=== PATIENT | male | born 1945 | race Caucasian/White ===

== ENCOUNTER → 2017-10-16 10:06 | Outpatient (CLI) | payer MEDICARE, OTHER, SELFPAY ==
[2017-10-16 12:02] LABS: Alanine Aminotransferase 47 IU/L (21-72); Albumin 4.3 g/dL (3.5-5.0); Albumin Globulin Ratio 1.5 (1.0-2.8); Alkaline Phosphatase 103 U/L (38-126); Aspartate Aminotransferase 33 IU/L (17-59); BUN Creatinine Ratio 15.6 (6-22); Bilirubin Total 1.1 mg/dL (0.2-1.3); Blood Urea Nitrogen 14 mg/dL (9-20); Calcium 10.1 mg/dL (8.4-10.2); Carbon Dioxide 28 mmol/L (22-32); Chloride 104 mmol/L (98-107); Cholesterol 173 mg/dL (140-199); Estimated Glomerular Filt Rate > 60.0 mL/min (>60); Globulin 2.9 g/dL (1.7-4.1); Glucose 107 mg/dL (80-110); HDL Cholesterol 52 mg/dL (40-60); HEMOLYSIS < 15 (0-50); LDL Cholesterol Calculated 92 mg/dL (<100); Potassium 4.8 mmol/L (3.4-5.1); Sodium 142 mmol/L (137-145); Total Protein 7.2 g/dL (6.3-8.2); Triglycerides 146 mg/dL (35-150)
[2017-10-16 12:28] LABS: Add Manual Diff / Slide Review NO; Basophils Percent Auto 0.5 % (0-2); Eosinophils Percent Auto 4.3 % (2-4); Hematocrit 42.7 % (41-53); Hemoglobin 15.1 g/dL (13.5-17.5); Lymphocytes Percent Auto 22.4 % (25-40); Mean Corpuscular HGB Conc 35.5 % (30-36); Mean Corpuscular Hemoglobin 30.6 PG (26-34); Mean Corpuscular Volume 86.3 fL (80-100); Monocytes Percent Auto 7.5 % (3-14); Neutrophils Absolute Auto 3900 /uL (3000-5900); Neutrophils Percent Auto 65.3 % (50-75); Platelet Count 145 X10^3/uL (150-400); Red Blood Cell Count 4.95 X10^6/uL (4.5-5.9); Red Cell Distribution Width 13.9 % (11.6-14.8); White Blood Cell Count 5.9 X10^3/uL (4.5-11.0)
[2017-10-16 12:33] LABS: Prostate Specific Antigen Scrn < 0.064 ng/mL (0.1-4.0)
== END ==
PROVIDERS: PCP Internal Medicine; Visit Provider Internal Medicine
DX: D69.6 Thrombocytopenia, unspecified (principal); Z85.46 Personal history of malignant neoplasm of prostate; E78.00 Pure hypercholesterolemia, unspecified
CPT/HCPCS: 36415; 80053; 80061; 85025; G0103

== ENCOUNTER 2018-03-29 09:27 | Emergency (ER) | payer MEDICARE, OTHER, SELFPAY ==
[2018-03-29 09:36] VITALS: BP 150/88; PULSE 50; RESP 18; TEMP 36.4; O2SAT 99; BMI 30.5
[2018-03-29 10:05] VITALS: PULSE 54; RESP 17
--- NOTE | 2018-03-29 10:13 | DI.RAD.S_ITS ---
PROCEDURE: XR CHEST 1V INDICATIONS: chest pain TECHNIQUE: One view of the chest was acquired. COMPARISON: None. FINDINGS: Surgical changes and devices: None. Lungs and pleura: No pleural effusions or pneumothorax. Low lung volumes and mild scattered subsegmental atelectasis. No acute consolidation. Mixed sclerosis and lucency projecting in the left humeral head, technically nonspecific. Mediastinum: Mediastinal contours appear normal. Heart size is normal. Bones and chest wall: No suspicious bony lesions. Overlying soft tissues appear unremarkable. Bilateral AC joint degeneration. Dextrocurvature of the visualized spine. IMPRESSION: No acute cardiopulmonary disease. Low lung volumes and scattered atelectasis/scarring. Dictated by: Taran Cotter M.D. on 03/29/2018 at 11:15 Approved by: Taran Cotter M.D. on 03/29/2018 at 11:17
--- NOTE | 2018-03-29 10:16 | DI.CT.S_ITS ---
PROCEDURE: CT HEAD/BRAIN WO CON INDICATIONS: dizzy off and on TECHNIQUE: Noncontrast 4.5 mm thick angled axial sections acquired from the foramen magnum to the vertex, with coronal and sagittal reformats. For radiation dose reduction, the following was used: automated exposure control, adjustment of mA and/or kV according to patient size. COMPARISON: [facility], MR, BRAIN W&WO CONTRAST, 02/12/2015, 8:52. [facility], CT, SINUS SCREEN WO CONTRAST, 06/05/2017, 10:19. FINDINGS: Image quality: Excellent. CSF spaces: Basal cisterns are patent. No extra-axial fluid collections. The ventricles are symmetric in size and shape. Brain: No intracranial bleeds or masses. There is cerebral volume loss for age, with resultant ventricular and sulcal prominence. There are periventricular and deep white matter chronic small vessel ischemic changes. There is intracranial internal carotid artery atherosclerosis. Skull and face: Calvarium and visualized facial bones appear intact, without suspicious lesions. Sinuses: Visualized sinuses and mastoids are clear. IMPRESSION: Normal intracranial study for age. Note is made of age-appropriate brain parenchymal volume loss and chronic small vessel ischemic changes. Dictated by: Peter Silva M.D. on 03/29/2018 at 9:34 Approved by: Peter Silva M.D. on 03/29/2018 at 9:35
[2018-03-29] MEDS: ONDANSETRON 4 MG/2 ML INJ IV (10:18)
[2018-03-29] MEDS: MECLIZINE HCL 12.5 MG TABLET 25 MG PO (10:18)
[2018-03-29] MEDS: SODIUM CHLORIDE 0.9% 1,000 ML 1000 ML IV (10:18)
--- NOTE | 2018-03-29 10:19 | ED.DIZZY ---
HPI - Dizziness General Chief Complaint: Dizziness Stated Complaint: very dizzy,headache,nausea, Time Seen by Provider: 03/29/18 10:11 Source: patient Mode of arrival: ambulatory Limitations: no limitations History of Present Illness HPI Narrative: Patient is a 72-year-old male who presents with dizziness. He has had 1 episode of dizziness about a month and half ago that time he had some chest pain as well lasted for couple days and went away. He was instructed that if he should have it again he needs to go the emergency department. He started feeling dizzy last night. He denies any vision changes weakness numbness tingling he has no chest pain or heart palpitations this time. He has not passed out. MD complaint: dizziness Related Data Home Medications Medication Instructions Recorded Confirmed Glucosamine 1 tab PO DAILY 03/29/18 03/29/18 Oral Rinse 1 dose PO PRN PRN 03/29/18 03/29/18 aspirin 81 mg PO DAILY 03/29/18 03/29/18 atorvastatin 10 mg PO DAILY 03/29/18 03/29/18 clobetasol 1 applic TOPICAL PRN PRN 03/29/18 03/29/18 desonide 1 applic TOPICAL DAILY PRN 03/29/18 03/29/18 latanoprost 1 drp OPHTHALMIC (EYE) BID 03/29/18 03/29/18 losartan 100 mg PO DAILY 03/29/18 03/29/18 timolol maleate 1 drp OPHTHALMIC (EYE) DIRECTED 03/29/18 03/29/18 Previous Rx's Medication Instructions Recorded meclizine 25 mg PO TID PRN #14 tab 03/29/18 ondansetron 4 mg PO Q6-8H PRN #10 tab 03/29/18 Allergies Allergy/AdvReac Type Severity Reaction Status Date / Time Influenza Virus Vaccines Allergy Severe Anaphylaxis Verified 03/29/18 09:42 Review of Systems Review of Systems All systems reviewed & are unremarkable except as noted in HPI and below Constitutional Denies chills, Denies fever(s), Denies lethargy and Denies weakness Eyes Denies change in vision, Denies eye discharge, Denies irritation and Denies loss of vision ENT Ears, Nose, Mouth, and Throat: Reports dizziness Cardiovascular Denies chest pain, Denies irregular heart rhythm, Denies lightheadedness, Denies palpitations, Denies dyspnea, Denies dyspnea on exertion and Denies orthopnea Respiratory Denies cough, Denies dyspnea, Denies dyspnea on exertion and Denies wheezing Gastrointestinal Gastrointestinal: Denies abdominal pain, Denies change in bowel habits, Denies diarrhea, Denies nausea and Denies vomiting Musculoskeletal Reports system reviewed and no additional complaints, except as docu Integumentary/Breasts Denies pruritus, Denies erythema, Denies rash and Denies wounds Neurologic Reports dizziness, Denies loss of vision and Denies weakness Endocrine Denies palpitations Allergic/Immunologic Denies wheezing [facility] Medical History Hyperlipidemia (Acute) Hypertension (Acute) Social History Smoking Status: Never smoker Exam Initial Vital Signs Initial Vital Signs: Vital Signs Temperature 97.6 F 03/29/18 09:36 Pulse Rate 50 L 03/29/18 09:36 Respiratory Rate 18 03/29/18 09:36 Blood Pressure 150/88 H 03/29/18 09:36 Pulse Oximetry 99 03/29/18 09:36 GENERAL: Alert well-appearing male no acute distress HEENT: Head atraumatic,EOMI, pupils reactive, face symmetric, neck is supple no JVD CARDIOVASCULAR: Regular rate and rhythm without murmurs, rubs or gallops. RESPIRATORY: Breath sounds equal bilaterally, no wheezes rales or rhonchi. ABDOMEN: Soft, nontender. Normoactive bowel sounds all 4 quadrants. No guarding or rebound. EXTREMITIES: Normal range of motion, no clubbing or edema. Neurovascularly intact NEUROLOGICAL: Alert and oriented x4.Normal gait and speech. Cranial nerves II through XII grossly intact. SKIN: Warm, dry, no laceration, no petechiae, no rashes or lesions. Scores NIH Stroke Scale Level of Conciousness: Alert, keenly responsive Ask month/age: Answers both questions correctly. Open/close eyes, close hand: Performs both tasks correctly Best gaze horizontal: Normal Visual gama: No visual loss Facial palsy: Normal symetrical movement Left arm drift: No drift for full 10 sec Right arm drift: No drift for full 10 sec Left leg drift: No drift for full 10 sec Right leg drift: No drift for full 10 sec Limb ataxia: Absent Sensory on face/arms/legs: Normal, no sensory loss Best language: No aphasia, normal Dysarthria: Normal Extinction or inattention: No abnormality Total NIH Stroke scale score: 0 Course Orders Ordered: ED Orders 03/29/18 10:08 Complete Blood Count AUTO DIFF Stat Comprehensive Metabolic Panel Stat Troponin & CK Cardiac Panel Stat 03/29/18 10:13 XR chest 1V Stat 03/29/18 10:16 CT head/brain wo con Stat Discontinued Medications Sodium Chloride (Normal Saline 0.9%) 1,000 mls @ 1,000 mls/hr IV CONT JACQUELINE Last Infusion: 03/29/18 11:20 Dose: 0 mls/hr Admin: 03/29/18 10:18 Dose: 1,000 mls/hr Meclizine HCl (Antivert) 25 mg PO NOW ONE Stop: 03/29/18 10:13 Last Admin: 03/29/18 10:18 Dose: 25 mg Ondansetron HCl (Zofran) 4 mg IV NOW ONE Stop: 03/29/18 10:13 Last Admin: 03/29/18 10: Dose: 4 mg Vital Signs - 8 hr 03/29/18 09:36 03/29/18 10:05 03/29/18 10:48 Temperature 97.6 F Pulse Rate 50 L 54 L 55 L Respiratory Rate 18 17 14 Blood Pressure 150/88 H Blood Pressure [Left Arm] 161/85 H Pulse Oximetry 99 98 03/29/18 10:57 03/29/18 12:15 Temperature Pulse Rate 71 53 L Respiratory Rate 15 16 Blood Pressure 162/80 H Blood Pressure [Left Arm] 126/67 Pulse Oximetry 93 97 MDM - Dizziness Lab Data Attestation: I reviewed the patient's lab results. Result diagrams: 03/29/18 10:08 03/29/18 10:08 Lab Results 03/29/18 03/29/18 Range/Units 10:08 10:08 WBC 5.8 (4.5-11.0) X10^3/uL RBC 4.87 (4.5-5.9) X10^6/uL Hgb 14.6 (13.5-17.5) g/dL Hct 42.2 (41-53) % MCV 86.6 (80-100) fL MCH 30.1 (26-34) PG MCHC 34.7 (30-36) % RDW 14.5 (11.6-14.8) % Plt Count 117 L (150-400) X10^3/uL Neut % (Auto) 65.5 (50-75) % Lymph % (Auto) 24.0 L (25-40) % [place] % (Auto) 6.9 (3-14) % Eos % (Auto) 3.0 (2-4) % Baso % (Auto) 0.6 (0-2) % Neut # (Auto) 3800 (0354-1312) /uL Sodium 140 (137-145) mmol/L Potassium 4.3 (3.4-5.1) mmol/L Chloride 106 (98-107) mmol/L Carbon Dioxide 24 (22-32) mmol/L BUN 19 (9-20) mg/dL Creatinine 0.80 (0.66-1.25) mg/dL Estimated GFR > 60.0 (>60) mL/min BUN/Creatinine Ratio 23.8 H (6-22) Glucose 127 H (80-110) mg/dL Calcium 9.3 (8.4-10.2) mg/dL Total Bilirubin 1.0 (0.2-1.3) mg/dL AST 35 (17-59) IU/L ALT 42 (21-72) IU/L Alkaline Phosphatase 101 (38-126) U/L Total Creatine Kinase 62 (55-170) U/L CK-MB (CK-2) TNP CK-MB (CK-2) Rel Index TNP Troponin I < 0.012 (0.01-0.034) ng/mL Total Protein 6.7 (6.3-8.2) g/dL Albumin 4.2 (3.5-5.0) g/dL Globulin 2.5 (1.7-4.1) g/dL Albumin/Globulin Ratio 1.7 (1.0-2.8) Imaging Data CT scan - head: Radiologist's impression: [address] [address] [address] Scan Report Signed Patient: Samuel Subramanian [facility]#: [id number] : 4Acct:[id number] Age/Sex: 72 / MDate of Service: 03/29/18 Loc: ED Accession Number: [id number] Procedure: CT head/brain wo con Ordering Provider: Nella Petersen D.O. PROCEDURE: CT HEAD/BRAIN WO CON INDICATIONS: dizzy off and on TECHNIQUE: Noncontrast 4.5 mm thick angled axial sections acquired from the foramen magnum to the vertex, with coronal and sagittal reformats. For radiation dose reduction, the following was used: automated exposure control, adjustment of mA and/or kV according to patient size. COMPARISON: [facility], MR, BRAIN W&WO CONTRAST, 02/12/2015, 8:52. [facility], CT, SINUS SCREEN WO CONTRAST, 06/05/2017, 10:19. FINDINGS: Image quality: Excellent. CSF spaces: Basal cisterns are patent. No extra-axial fluid collections. The ventricles are symmetric in size and shape. Brain: No intracranial bleeds or masses. There is cerebral volume loss for age, with resultant ventricular and sulcal prominence. There are periventricular and deep white matter chronic small vessel ischemic changes. There is intracranial internal carotid artery atherosclerosis. Skull and face: Calvarium and visualized facial bones appear intact, without suspicious lesions. Sinuses: Visualized sinuses and mastoids are clear. IMPRESSION: Normal intracranial study for age. Note is made of age-appropriate brain parenchymal volume loss and chronic small vessel ischemic changes. Dictated by: Peter Silva M.D. on 03/29/2018 at 9:34 Approved by: Peter Silva M.D. on 03/29/2018 at 9:35 Chest x-ray: Radiologist's impression: [address] [address] XRay Report Signed Patient: Samuel Subramanian [facility]#: [id number] : 4Acct:[id number] Age/Sex: 72 / MDate of Service: 03/29/18 Loc: ED Accession Number: [id number] Procedure: XR chest 1V Ordering Provider: Nella Petersen D.O. PROCEDURE: XR CHEST 1V INDICATIONS: chest pain TECHNIQUE: One view of the chest was acquired. COMPARISON: None. FINDINGS: Surgical changes and devices: None. Lungs and pleura: No pleural effusions or pneumothorax. Low lung volumes and mild scattered subsegmental atelectasis. No acute consolidation. Mixed sclerosis and lucency projecting in the left humeral head, technically nonspecific. Mediastinum: Mediastinal contours appear normal. Heart size is normal. Bones and chest wall: No suspicious bony lesions. Overlying soft tissues appear unremarkable. Bilateral AC joint degeneration. Dextrocurvature of the visualized spine. IMPRESSION: No acute cardiopulmonary disease. Low lung volumes and scattered atelectasis/scarring. Dictated by: Taran Cotter M.D. on 03/29/2018 at 11:15 ECG Data Attestation: I personally reviewed and interpreted this ECG as follows: Prior ECG tracings: available for review Interpretation: Sinus rhythm rate 54 prolonged AR at 2:[address] changes no T-wave inversions QRS S1 O2 QTC 406 no priors to compare MDM Narrative Medical decision making narrative: Patient overall is feeling better with meclizine. He now says that he has been dizzy off and on for number of years however the last 2 episodes have been quite extreme for him. I discussed with him he may need ENT referral and evaluation. I have printed off the Marizol maneuver for him to do at home if he so chooses. However at this time with him feeling better after meclizine I will not perform. Discharge Plan Departure Patient Disposition: Home Clinical Impression: Benign paroxysmal positional vertigo Discharge Date/Time: 03/29/18 12:15 Interventions: ED Discharge Assessment Last Done: 03/29/18 12:15 Instructions: Benign Paroxysmal Positional Vertigo Activity Restrictions/Additional Instructions: *You have been diagnosed with benign paroxysmal positional vertigo *What to do: At this time no sign of stroke, blood work reassuring. You may try Apley's maneuver at home if you choose. It can help *Continue to take medications as directed Meclizine every 8 hr if needed for dizziness Zofran 4 mg every 6-8 hours if needed for nausea or vomiting *Follow up with your primary care provider in 2-3 days *Return to ER if you should have persistent dizziness, weakness, chest pain, vision change or any new, worsening or concerning symptoms Prescriptions: New meclizine 25 mg tablet 25 mg PO TID PRN (Reason: dizziness) Qty: 14 RF: 0 ondansetron 4 mg tablet,disintegrating 4 mg PO Q6-8H PRN (Reason: nausea and vomiting) Qty: 10 RF: 0 No Action latanoprost 0.005 % drops 1 drp ophthalmic (eye) BID RF: 0 atorvastatin 10 mg tablet 10 mg PO DAILY RF: 0 timolol maleate 0.5 % drops 1 drp ophthalmic (eye) DIRECTED RF: 0 losartan 100 mg tablet 100 mg PO DAILY RF: 0 desonide 0.05 % Cream 1 applic TOPICAL DAILY PRN (Reason: Skin Irritation) RF: 0 aspirin 81 mg Tablet,Delayed Release (Dr/Ec) 81 mg PO DAILY RF: 0 Glucosamine 1 tab PO DAILY RF: 0 Oral Rinse 1 dose PO PRN PRN (Reason: dental rinse) RF: 0 clobetasol 1 applic Topical PRN PRN (Reason: Skin Irritation) RF: 0 Referrals: Lauri Appiah MD [Primary Care Provider] -
[2018-03-29 10:20] LABS: Add Manual Diff / Slide Review NO; Basophils Percent Auto 0.6 % (0-2); Hematocrit 42.2 % (41-53); Hemoglobin 14.6 g/dL (13.5-17.5); Mean Corpuscular HGB Conc 34.7 % (30-36); Mean Corpuscular Hemoglobin 30.1 PG (26-34); Mean Corpuscular Volume 86.6 fL (80-100); Monocytes Percent Auto 6.9 % (3-14); Neutrophils Absolute Auto 3800 /uL (3000-5900); Neutrophils Percent Auto 65.5 % (50-75); Platelet Count 117 X10^3/uL (150-400); Red Blood Cell Count 4.87 X10^6/uL (4.5-5.9); Red Cell Distribution Width 14.5 % (11.6-14.8); White Blood Cell Count 5.8 X10^3/uL (4.5-11.0)
[2018-03-29 10:35] LABS: Alanine Aminotransferase 42 IU/L (21-72); Albumin 4.2 g/dL (3.5-5.0); Albumin Globulin Ratio 1.7 (1.0-2.8); Alkaline Phosphatase 101 U/L (38-126); Aspartate Aminotransferase 35 IU/L (17-59); BUN Creatinine Ratio 23.8 (6-22); Blood Urea Nitrogen 19 mg/dL (9-20); Calcium 9.3 mg/dL (8.4-10.2); Carbon Dioxide 24 mmol/L (22-32); Chloride 106 mmol/L (98-107); Creatine Kinase 62 U/L (55-170); Estimated Glomerular Filt Rate > 60.0 mL/min (>60); Globulin 2.5 g/dL (1.7-4.1); Glucose 127 mg/dL (80-110); HEMOLYSIS < 15 (0-50); Potassium 4.3 mmol/L (3.4-5.1); Sodium 140 mmol/L (137-145); Total Protein 6.7 g/dL (6.3-8.2)
[2018-03-29 10:47] LABS: Troponin I < 0.012 ng/mL (0.01-0.034)
[2018-03-29 10:48] VITALS: BP 161/85; PULSE 55; RESP 14; O2SAT 98
[2018-03-29 10:57] VITALS: BP 126/67; PULSE 71; RESP 15; O2SAT 93
[2018-03-29 12:15] VITALS: BP 162/80; PULSE 53; RESP 16; O2SAT 97
--- NOTE | 2018-03-30 16:16 | PC.NURSE ---
call back, no answer.
== END 2018-03-29 12:15 | disposition home or self-care (01) ==
PROVIDERS: Emergency Provider Emergency Medicine; PCP Internal Medicine
DX: H81.10 Benign paroxysmal vertigo, unspecified ear (principal)
CPT/HCPCS: 70450; 71045; 80053; 82550; 84484; 85025; 93005; 93041; 96361; 96374; 99283; 99285; J2405

== ENCOUNTER → 2020-01-06 08:44 | Outpatient (CLI) | payer MEDICARE, OTHER, SELFPAY ==
[2020-01-06 10:02] LABS: Add Manual Diff / Slide Review NO; Basophils Absolute Auto 0 /uL (0-100); Basophils Percent Auto 0.4 % (0-2); Eosinophils Absolute Auto 200 /uL (0-450); Eosinophils Percent Auto 3.9 % (2-4); Hematocrit 44.9 % (41-53); Hemoglobin 15.3 g/dL (13.5-17.5); Lymphocytes Absolute Auto 1600 /uL (1100-4500); Lymphocytes Percent Auto 25.7 % (25-40); Mean Corpuscular HGB Conc 34.1 % (30-36); Mean Corpuscular Hemoglobin 30.1 PG (26-34); Mean Corpuscular Volume 88.2 fL (80-100); Monocytes Absolute Auto 500 /uL (0-900); Monocytes Percent Auto 8.1 % (3-14); Neutrophils Absolute Auto 3900 /uL (1500-7000); Neutrophils Percent Auto 61.9 % (50-75); Platelet Count 138 X10^3/uL (150-400); Red Blood Cell Count 5.08 X10^6/uL (4.5-5.9); Red Cell Distribution Width 14.3 % (11.6-14.8); White Blood Cell Count 6.4 X10^3/uL (4.5-11.0)
[2020-01-06 10:41] LABS: Alanine Aminotransferase 30 IU/L (<50); Albumin 3.9 g/dL (3.5-5.0); Albumin Globulin Ratio 1.4 (1.0-2.8); Alkaline Phosphatase 116 U/L (38-126); Aspartate Aminotransferase 26 IU/L (17-59); BUN Creatinine Ratio 16.8 (6-22); Bilirubin Total 1.4 mg/dL (0.2-1.3); Blood Urea Nitrogen 17 mg/dL (9-20); Calcium 9.4 mg/dL (8.4-10.2); Carbon Dioxide 25 mmol/L (22-32); Chloride 107 mmol/L (98-107); Cholesterol 152 mg/dL (140-199); Estimated Glomerular Filt Rate > 60.0 mL/min (>60); Globulin 2.7 g/dL (1.7-4.1); Glucose 108 mg/dL (80-110); HDL Cholesterol 49 mg/dL (40-60); HEMOLYSIS < 15 (0-50); LDL Cholesterol Calculated 82 mg/dL (<100); Potassium 4.6 mmol/L (3.4-5.1); Sodium 139 mmol/L (137-145); Total Protein 6.6 g/dL (6.3-8.2); Triglycerides 106 mg/dL (35-150)
== END ==
PROVIDERS: PCP Internal Medicine; Referring Provider Internal Medicine; Visit Provider Internal Medicine
DX: I10 Essential (primary) hypertension (principal); D69.6 Thrombocytopenia, unspecified; E78.2 Mixed hyperlipidemia
CPT/HCPCS: 36415; 80053; 80061; 85025

== ENCOUNTER → 2020-03-23 09:59 | Outpatient (CLI) | payer MEDICARE, OTHER, SELFPAY ==
[2020-03-23 12:37] LABS: Alanine Aminotransferase 37 IU/L (<50); Albumin Globulin Ratio 1.5 (1.0-2.8); Alkaline Phosphatase 107 U/L (38-126); Aspartate Aminotransferase 33 IU/L (17-59); Bilirubin Total 1.3 mg/dL (0.2-1.3); Globulin 2.7 g/dL (1.7-4.1); HEMOLYSIS < 15 (0-50); Total Protein 6.7 g/dL (6.3-8.2)
[2020-03-23 13:16] LABS: Prostate Specific Antigen < 0.064 ng/mL (0.10-4.00)
== END ==
PROVIDERS: PCP Internal Medicine; Referring Provider Internal Medicine; Visit Provider Internal Medicine
DX: Z85.46 Personal history of malignant neoplasm of prostate (principal); R17 Unspecified jaundice
CPT/HCPCS: 36415; 80076; 84153

== ENCOUNTER → 2020-09-28 10:03 | Outpatient (CLI) | payer MEDICARE, OTHER, SELFPAY ==
[2020-09-28 11:29] LABS: Add Manual Diff / Slide Review NO; Basophils Absolute Auto 0 /uL (0-100); Basophils Percent Auto 0.5 % (0-2); Eosinophils Absolute Auto 200 /uL (0-450); Eosinophils Percent Auto 3.9 % (2-4); Hematocrit 44.6 % (41-53); Lymphocytes Absolute Auto 1400 /uL (1100-4500); Lymphocytes Percent Auto 24.3 % (25-40); Mean Corpuscular HGB Conc 33.5 % (30-36); Mean Corpuscular Hemoglobin 29.9 PG (26-34); Mean Corpuscular Volume 89.3 fL (80-100); Monocytes Absolute Auto 500 /uL (0-900); Monocytes Percent Auto 8.3 % (3-14); Neutrophils Absolute Auto 3700 /uL (1500-7000); Platelet Count 139 X10^3/uL (150-400); Red Cell Distribution Width 14.1 % (11.6-14.8); White Blood Cell Count 5.9 X10^3/uL (4.5-11.0)
[2020-09-28 11:46] LABS: Alanine Aminotransferase 36 IU/L (<50); Albumin 4.1 g/dL (3.5-5.0); Albumin Globulin Ratio 1.4 (1.0-2.8); Alkaline Phosphatase 86 U/L (38-126); Aspartate Aminotransferase 32 IU/L (17-59); BUN Creatinine Ratio 19.8 (6-22); Bilirubin Total 1.2 mg/dL (0.2-1.3); Blood Urea Nitrogen 21 mg/dL (9-20); Calcium 9.9 mg/dL (8.4-10.2); Carbon Dioxide 27 mmol/L (22-32); Chloride 107 mmol/L (98-107); Estimated Glomerular Filt Rate > 60.0 mL/min (>60); Globulin 2.9 g/dL (1.7-4.1); Glucose 109 mg/dL (80-110); HEMOLYSIS < 15 (0-50); Potassium 4.8 mmol/L (3.4-5.1); Sodium 138 mmol/L (137-145)
== END ==
PROVIDERS: PCP Internal Medicine; Referring Provider Internal Medicine; Visit Provider Internal Medicine
DX: I10 Essential (primary) hypertension (principal); D69.6 Thrombocytopenia, unspecified; R17 Unspecified jaundice; L21.9 Seborrheic dermatitis, unspecified
CPT/HCPCS: 36415; 80053; 85025

== ENCOUNTER → 2021-02-23 14:37 | Outpatient (CLI) | payer MEDICARE, OTHER, SELFPAY ==
[2021-02-23 15:46] LABS: COVID19 -Nasal RAPID Negative (Negative)
== END ==
PROVIDERS: PCP Internal Medicine; Visit Provider Nurse Practitioner
DX: Z20.822 Contact with and (suspected) exposure to COVID-19 (principal); J02.9 Acute pharyngitis, unspecified; R09.81 Nasal congestion; R51.9 Headache, unspecified
CPT/HCPCS: 87635

== ENCOUNTER → 2023-08-02 09:19 | Outpatient (CLI) | payer MEDICARE, OTHER, SELFPAY ==
[2023-08-02 10:00] LABS: Add Manual Diff / Slide Review NO; Basophils Absolute Auto 0 /uL (0-100); Basophils Percent Auto 0.4 % (0-2); Eosinophils Absolute Auto 300 /uL (0-450); Eosinophils Percent Auto 4.8 % (2-4); Hematocrit 43.9 % (41-53); Hemoglobin 15.1 g/dL (13.5-17.5); Lymphocytes Absolute Auto 1900 /uL (1100-4500); Lymphocytes Percent Auto 31.6 % (25-40); Mean Corpuscular HGB Conc 34.4 % (30-36); Mean Corpuscular Hemoglobin 30.5 PG (26-34); Mean Corpuscular Volume 88.7 fL (80-100); Monocytes Absolute Auto 500 /uL (0-900); Monocytes Percent Auto 8.6 % (3-14); Neutrophils Absolute Auto 3200 /uL (1500-7000); Neutrophils Percent Auto 54.6 % (50-75); Platelet Count 141 X10^3/uL (150-400); Red Blood Cell Count 4.95 X10^6/uL (4.5-5.9); White Blood Cell Count 5.9 X10^3/uL (4.5-11.0)
[2023-08-02 10:29] LABS: Alanine Aminotransferase 30 IU/L (<50); Albumin 4.1 g/dL (3.5-5.0); Albumin Globulin Ratio 1.4 (1.0-2.8); Alkaline Phosphatase 91 U/L (38-126); Aspartate Aminotransferase 28 IU/L (17-59); BUN Creatinine Ratio 29.5 (6-22); Bilirubin Total 1.3 mg/dL (0.2-1.3); Blood Urea Nitrogen 31 mg/dL (9-20); Calcium 9.9 mg/dL (8.4-10.2); Carbon Dioxide 28 mmol/L (22-32); Chloride 107 mmol/L (98-107); Cholesterol 169 mg/dL (140-199); Estimated Glomerular Filt Rate > 60 mL/min (>60); Globulin 2.9 g/dL (1.7-4.1); Glucose 110 mg/dL (80-110); HDL Cholesterol 46 mg/dL (40-60); HEMOLYSIS < 15 (0-50); LDL Cholesterol Calculated 98 mg/dL (<100); Potassium 4.4 mmol/L (3.4-5.1); Sodium 139 mmol/L (137-145); Triglycerides 124 mg/dL (35-150)
== END ==
PROVIDERS: PCP Family Medicine; Referring Provider Family Medicine; Visit Provider Family Medicine
DX: Z00.00 Encounter for general adult medical examination without abnormal findings (principal); I10 Essential (primary) hypertension; E78.5 Hyperlipidemia, unspecified; R42 Dizziness and giddiness
CPT/HCPCS: 36415; 80053; 80061; 85025

== ENCOUNTER → 2024-08-02 10:25 | Outpatient (CLI) | payer MEDICARE, OTHER, SELFPAY ==
[2024-08-02 11:41] LABS: Alanine Aminotransferase 28 IU/L (<50); Albumin 4.2 g/dL (3.5-5.0); Albumin Globulin Ratio 1.6 (1.0-2.8); Alkaline Phosphatase 99 U/L (38-126); Aspartate Aminotransferase 29 IU/L (17-59); BUN Creatinine Ratio 21.9 (6-22); Bilirubin Total 1.3 mg/dL (0.2-1.3); Blood Urea Nitrogen 25 mg/dL (9-20); Calcium 9.9 mg/dL (8.4-10.2); Carbon Dioxide 28 mmol/L (22-32); Chloride 103 mmol/L (98-107); Cholesterol 174 mg/dL (140-199); Estimated Glomerular Filt Rate > 60 mL/min (>60); Globulin 2.6 g/dL (1.7-4.1); Glucose 116 mg/dL (80-110); HDL Cholesterol 52 mg/dL (40-60); HEMOLYSIS < 15 (0-50); LDL Cholesterol Calculated 95 mg/dL (<100); Potassium 4.4 mmol/L (3.4-5.1); Sodium 138 mmol/L (137-145); Total Protein 6.8 g/dL (6.3-8.2); Triglycerides 134 mg/dL (35-150)
== END ==
PROVIDERS: PCP Family Medicine; Referring Provider Family Medicine; Visit Provider Family Medicine
DX: Z00.00 Encounter for general adult medical examination without abnormal findings (principal); E78.5 Hyperlipidemia, unspecified; I10 Essential (primary) hypertension
CPT/HCPCS: 36415; 80053; 80061